=== PATIENT | female | born 1955 | race African-American/Black ===

== ENCOUNTER 2020-03-01 17:57 | Inpatient (IN) | payer OTHER ==
[~2020-03-01] VITALS: Ht 162.6 cm; Wt 76.1 kg
--- NOTE | 2020-03-01 18:31 | NUR ---
MANUELA BRUMFIELD CONTACTED FOR PT MEDICATION LIST. THEY REPORT THEY DID NOT REVIEW HOME MEDS WITH PATIENT. PT STATES USES A PHARMACY IN [place], [place] THAT IS CURRENTLY CLOSED. [facility] WILL OPEN AT 0900 TOMORROW.
[2020-03-01 19:30] LABS: BASOPHILS 0.2 % (0-2); EOSINOPHILS 0 % (0-7); HEMOGLOBIN 16.2 g/dL (12-16); IMMATURE GRANULOCYTES 0.2 % (0-5); LYMPHOCYTES 16.3 % (15-50); MCH 27.7 pg (26.0-34.0); MCHC 32.4 g/dL (31.0-37.0); MCV 85.6 fL (80.0-100.0); MEAN PLATELET VOLUME 10.7 fL (7.4-10.4); MONOCYTES 5.7 % (2-11); NEUTROPHILS 77.6 % (40-80); PLATELET COUNT 79 10x3/uL (130-400); RBC 5.84 10x6/uL (4.00-5.40); RDW 15.9 % (11.5-14.5); WBC 4.4 10x3/uL (4.8-10.8)
[2020-03-01 19:45] LABS: CALC OSMOLALITY 299 mosm/kg (275-300); CALCIUM 10.7 mg/dL (8.5-10.1); CARBON DIOXIDE 20.7 mmol/L (21.0-32.0); CHLORIDE - SERUM 105 mmol/L (98-107); GLUCOSE 85 mg/dL (74-106); POTASSIUM - SERUM 5.3 mmol/L (3.5-5.1); SODIUM 135 mmol/L (136-145); UREA NITROGEN 99 mg/dL (7-18); eGFR NON AFRICAN AMERICAN 9 mL/min (90-120)
[2020-03-01 19:54] LABS: ALBUMIN 3.4 g/dL (3.4-5.0); ALKALINE PHOSPHATASE 135 U/L (30-120); ALT (SGPT) 21 U/L (10-68); BILIRUBIN - TOTAL 0.88 mg/dL (0.2-1.3); MAGNESIUM - SERUM 2.2 mg/dL (1.8-2.4); PHOSPHOROUS 3.8 mg/dL (2.5-4.9); PROTEIN - SERUM 7.2 g/dL (6.4-8.2); TROPONIN-I < 0.017 ng/mL (0.000-0.060)
[2020-03-01 20:04] LABS: PLATELET ESTIMATE DECREASED
[2020-03-01] MEDS ORDERED: COREG6.25 MG PO (21:44)
[2020-03-01] MEDS ORDERED: FUROSEMIDE40 MG PO (21:44)
[2020-03-01] MEDS ORDERED: ATARAX 25 MG TA25 MG PO (21:45)
[2020-03-01] MEDS ORDERED: ZOFRAN ODT4 MG/UDTAB PO (21:45)
[2020-03-01 21:47] VITALS: BP 107/71; BMI 26.7
[2020-03-02] VITALS: BP 98/62
[2020-03-02 04:00] VITALS: BP 91/64
[2020-03-02 05:20] LABS: HEMATOCRIT 47.5 % (36.0-48.0); HEMOGLOBIN 15.1 g/dL (12-16); LYMPHOCYTES 15.8 % (15-50); MCH 27.2 pg (26.0-34.0); MCHC 31.8 g/dL (31.0-37.0); MCV 85.6 fL (80.0-100.0); MEAN PLATELET VOLUME 11.5 fL (7.4-10.4); NEUTROPHILS 76.3 % (40-80); PLATELET COUNT 74 10x3/uL (130-400); RBC 5.55 10x6/uL (4.00-5.40); WBC 4.2 10x3/uL (4.8-10.8)
[2020-03-02 05:54] LABS: ANION GAP 16.3 mmol/L (8-16); CALCIUM 9.5 mg/dL (8.5-10.1); CARBON DIOXIDE 17.4 mmol/L (21.0-32.0); CREATININE - SERUM 4.4 mg/dL (0.6-1.3); PHOSPHOROUS 3.8 mg/dL (2.5-4.9); POTASSIUM - SERUM 4.7 mmol/L (3.5-5.1)
[2020-03-02 09:00] VITALS: BP 98/68
[2020-03-02] MEDS ORDERED: CELEXA40 MG PO (10:00)
[2020-03-02] MEDS ORDERED: LOMOTIL 2.5-0.1 EAC1 PO (10:03)
--- NOTE | 2020-03-02 10:03 | NUR ---
CALLED [facility] AND SPOKE WITH MATT AND REVIEWED PT'S HOME MEDS.
--- NOTE | 2020-03-02 10:06 | NUR ---
PT STATES HER DOCTOR TOOK HER OFF LASIX AND HYDRALAZINE YESTERDAY.
--- NOTE | 2020-03-02 10:13 | NUR ---
PT STATES SHE ONLY TAKES HYDROXIZINE FOR ITCHING NEEDED BUT HER DOCOTR TOOK HER OFF TWO MEDICATIONS YESTERDAY BUT SHE IS NOT SURE WHAT THEY ARE. WILL CALL PT'S PCP.
[2020-03-02] MEDS ORDERED: LASIX20 MG PO (10:27)
--- NOTE | 2020-03-02 10:28 | NUR ---
SPOKE WITH DR. VANCE'S NURSE AND WENT OVER MED LIST. MED REC NOW CORRECT.
--- NOTE | 2020-03-02 10:29 | NUR ---
REFUSED SCD'S. PT UP ADLIB TO THE BATHROOM ANDS AROUND ROOM.
[2020-03-02 12:00] VITALS: BP 99/65
--- NOTE | 2020-03-02 13:24 | NUR ---
I have reviewed this patient and I concur with the Shift Assessment completed by the Licensed Practical Nurse today this shift.
[2020-03-02 15:10] LABS: BILIRUBIN NEGATIVE (NEGATIVE); GLUCOSE NEGATIVE (NEGATIVE); KETONE NEGATIVE (NEGATIVE); NITRITE NEGATIVE (NEGATIVE); SPECIFIC GRAVITY 1.015 (1.005-1.020); UROBILINOGEN NORMAL (NORMAL)
[2020-03-02 16:00] VITALS: BP 105/70
--- NOTE | 2020-03-02 19:08 | NUR ---
RECEIVED BEDSDIE REPORT. PATIENT IS ALERT AND ORIENTED, RESTING COMFORTABLY IN BED. RESPIRATIONS ARE EVEN AND UNLABORED. NO S/S OF DISTRESS. NO C/O PAIN. CALL LIGHT WITHIN REACH. WILL CPOC.
[2020-03-02 20:00] VITALS: BP 94/64
[2020-03-03] VITALS: BP 109/61
[2020-03-03 04:00] VITALS: BP 118/67
[2020-03-03 04:50] LABS: ANION GAP 10.8 mmol/L (8-16); CALCIUM 8.8 mg/dL (8.5-10.1); CREATININE - SERUM 4.1 mg/dL (0.6-1.3); URIC ACID 12.8 mg/dL (2.6-7.2)
[2020-03-03 04:51] LABS: BASOPHILS 0.2 % (0-2); EOSINOPHILS 0.2 % (0-7); HEMATOCRIT 43.5 % (36.0-48.0); HEMOGLOBIN 14.2 g/dL (12-16); IMMATURE GRANULOCYTES 0.2 % (0-5); LYMPHOCYTES 17.6 % (15-50); MCH 27.7 pg (26.0-34.0); MCHC 32.6 g/dL (31.0-37.0); MCV 84.8 fL (80.0-100.0); MONOCYTES 8.8 % (2-11); RBC 5.13 10x6/uL (4.00-5.40); RDW 15.8 % (11.5-14.5); WBC 4.1 10x3/uL (4.8-10.8)
[2020-03-03 04:53] LABS: CARBON DIOXIDE 24.2 mmol/L (21.0-32.0); PHOSPHOROUS 2.8 mg/dL (2.5-4.9)
[2020-03-03 04:54] LABS: PLATELET COUNT 89 10x3/uL (130-400); PLATELET ESTIMATE DECREASED
[2020-03-03 13:04] VITALS: BP 94/66
[2020-03-03 13:29] VITALS: Ht 162.6 cm; Wt 76.1 kg
[2020-03-03 17:40] VITALS: BP 96/61
[2020-03-03 18:15] VITALS: BP 95/65
--- NOTE | 2020-03-03 19:18 | NUR ---
I have reviewed this patient and I concur with the Shift Assessment completed by the Licensed Practical Nurse today this shift.
--- NOTE | 2020-03-03 20:11 | NUR ---
REPORT AND INITIAL ROUNDS COMPLETED. PT RESTING WITH NO DISTRESS. CPOC.
[2020-03-03 20:40] VITALS: BP 93/60
--- NOTE | 2020-03-03 21:19 | NUR ---
BEDTIME MEDS GIVEN.
[2020-03-04 01:13] VITALS: BP 96/68
[2020-03-04 04:42] VITALS: BP 102/72
[2020-03-04 05:01] LABS: BASOPHILS 0.2 % (0-2); EOSINOPHILS 0.2 % (0-7); HEMATOCRIT 43.8 % (36.0-48.0); HEMOGLOBIN 14.2 g/dL (12-16); IMMATURE GRANULOCYTES 0.2 % (0-5); LYMPHOCYTES 19.9 % (15-50); MCH 27.5 pg (26.0-34.0); MCHC 32.4 g/dL (31.0-37.0); MCV 84.7 fL (80.0-100.0); MEAN PLATELET VOLUME 11.1 fL (7.4-10.4); MONOCYTES 7.7 % (2-11); NEUTROPHILS 71.8 % (40-80); PLATELET COUNT 97 10x3/uL (130-400); RBC 5.17 10x6/uL (4.00-5.40); RDW 15.5 % (11.5-14.5); WBC 4.4 10x3/uL (4.8-10.8)
[2020-03-04 05:31] LABS: ANION GAP 11.7 mmol/L (8-16); CARBON DIOXIDE 22.2 mmol/L (21.0-32.0); CREATININE - SERUM 3.7 mg/dL (0.6-1.3); PHOSPHOROUS 2.2 mg/dL (2.5-4.9); POTASSIUM - SERUM 3.9 mmol/L (3.5-5.1)
--- NOTE | 2020-03-04 08:06 | NUR ---
PT AWAKE AND ORIENTED, LYING IN BED WATCHING TELIVISION. NO COMPLAINTS OR CONCERNS AT THIS TIME. NO FAMILY AT BEDSIDE. CL IN REACH, SRX2.
[2020-03-04 12:00] VITALS: BP 94/66
[2020-03-04 12:29] VITALS: BP 87/58
--- NOTE | 2020-03-04 14:42 | NUR ---
I have reviewed this patient and I concur with the Shift Assessment completed by the Licensed Practical Nurse today this shift.
[2020-03-04 16:00] VITALS: BP 98/67
[2020-03-04 20:00] VITALS: BP 95/70
--- NOTE | 2020-03-04 20:00 | NUR ---
REPORT AND INITIAL ROUNDS COMPLETED. PT RESTING IN BED. PLEASANT AND COOPERATIVE. HOPEFUL THAT SHE MAY GO HOME TOMORROW. CPOC.
[2020-03-05] VITALS: BP 99/66
--- NOTE | 2020-03-05 03:14 | NUR ---
PT RESTING IN BED WITH EYES CLOSED. RESPS EVEN/NONLABORED. SR PER TELEMETRY. CALL LIGHT IN REACH.
[2020-03-05 04:00] VITALS: BP 101/70
[2020-03-05 05:51] LABS: BASOPHILS 0.4 % (0-2); EOSINOPHILS 0 % (0-7); HEMOGLOBIN 13.6 g/dL (12-16); IMMATURE GRANULOCYTES 0.2 % (0-5); LYMPHOCYTES 23.3 % (15-50); MCH 27.9 pg (26.0-34.0); MCHC 32.4 g/dL (31.0-37.0); MCV 86.1 fL (80.0-100.0); MEAN PLATELET VOLUME 10.4 fL (7.4-10.4); MONOCYTES 7.7 % (2-11); NEUTROPHILS 68.4 % (40-80); PLATELET COUNT 83 10x3/uL (130-400); RBC 4.88 10x6/uL (4.00-5.40); RDW 15.7 % (11.5-14.5); WBC 4.7 10x3/uL (4.8-10.8)
[2020-03-05 06:25] LABS: ANION GAP 10.7 mmol/L (8-16); CALCIUM 8.8 mg/dL (8.5-10.1); CARBON DIOXIDE 21.4 mmol/L (21.0-32.0); CREATININE - SERUM 3.6 mg/dL (0.6-1.3); PHOSPHOROUS 2.2 mg/dL (2.5-4.9); POTASSIUM - SERUM 4.1 mmol/L (3.5-5.1)
--- NOTE | 2020-03-05 07:29 | NUR ---
PT RESTING COMFORTABLY, EYES CLOSED, BREATHS EVEN REGULAR AND UNLABORED. NO SIGNS OR SYMTPOMSO F ACUTE DISTRESSS NOTED AT THIS TIME. DID NTO WAKE I ENTERED, DID NOT FURTHER DISTURB AT THIS TIME. CL IN REACH, SRX2.
--- NOTE | 2020-03-05 09:11 | NUR ---
PT AWAKE AND ORIENTED. LYING IN BED. TOOK PILLS WITHOUT COMPLICATIONS, HOPEFUL TO D/C TODAY. WILL UPDATE THINGS PROGRESS. NO COMPLAINTS OR CONCERNS AT THSI TIME. CLIN REACH, SRX2.
[2020-03-05 09:39] VITALS: BP 95/72
[2020-03-05] MEDS ORDERED: ZYLOPRIM100 MG PO (10:34)
--- NOTE | 2020-03-05 10:55 | MORECARE ---
CASE MANAGEMENT DISCHARGE SUMMARY PATIENT: RAMSEY LORA UNIT: [id number] ADM DATE: 03/01/20 AGE: 64 : 59 SEX: F ROOM/BED: D.2493 AUTHOR: PRMIO DRISCOLL PHYSICIAN: REFERRING PHYSICIAN: ILIANA HICKS DO DATE OF SERVICE: 03/05/20 Discharge Plan Patient Name: RAMSEY LORA Facility: [facility]:[place] : 1955 Planned Disposition: Home Anticipated Discharge Date: Discharge Date: Expected LOS: Initial Reviewer: [email or web address] Initial Review Date: 03/01/2020 Generated: 03/05/20 11:55 am Patient Name: RAMSEY LORA Page [id number] at 1055 All edits/amendments must be made on the electronic document DICTATION DATE: 03/05/20 1055 PORTABLE PINCH RIVETER: KAREN 03/05/20 1055 RPT#: [id number] DC DATE: STATUS: ADM IN [facility] [address] [place] [address] END OF REPORT
--- NOTE | 2020-03-05 11:02 | MORECARE ---
CASE MANAGEMENT DISCHARGE SUMMARY PATIENT: RAMSEY LORA UNIT: [id number] ADM DATE: 03/01/20 AGE: 64 : 59 SEX: F ROOM/BED: D.7895 AUTHOR: PRIMO DRISCOLL PHYSICIAN: REFERRING PHYSICIAN: ILIANA HICKS DO DATE OF SERVICE: 03/05/20 Discharge Plan Patient Name: RAMSEY LORA Facility: [facility]:[place] : 1955 Planned Disposition: Home Anticipated Discharge Date: Discharge Date: Expected LOS: Initial Reviewer: [email or web address] Initial Review Date: 03/01/2020 Generated: 03/05/20 12:01 pm DCPIA - Discharge Planning Initial Assessment Updated by [email or web address]: Gianna Magaña on 03/05/20 10:56 am * Is the patient Alert and Oriented? Yes * How many steps to enter\exit or inside your home? 4/0 * PCP Edy * Pharmacy [facility] in [place] * Preadmission Environment Home Alone * ADLs Independent * Equipment None * List name and contact numbers for known caregivers / representatives who currently or will assist patient after discharge: Rekha Escobedo (sister) [phone] * Verbal permission to speak to the caregivers and representatives has been obtained from the patient. Yes * Community resources currently utilized None * Additional services required to return to the preadmission environment? No * Can the patient safely return to the preadmission environment? Yes * Has this patient been hospitalized within the prior 30 days at any hospital? No Last DP export: 03/05/20 9:55 a Patient Name: RAMSEY LORA Page [id number] at 1102 All edits/amendments must be made on the electronic document DICTATION DATE: 03/05/20 110 CERTIFIED MEDICAL AIDE: KAREN 03/05/20 1101 RPT#: [id number] DC DATE: STATUS: ADM IN [facility] [address] [place] [address] END OF REPORT
--- NOTE | 2020-03-05 11:08 | MORECARE ---
CASE MANAGEMENT DISCHARGE SUMMARY PATIENT: RAMSEY LORA UNIT: [id number] ADM DATE: 03/01/20 AGE: 64 : 59 SEX: F ROOM/BED: D.2285 AUTHOR: PRIMO DRISCOLL PHYSICIAN: REFERRING PHYSICIAN: ILIANA HICKS DO DATE OF SERVICE: 03/05/20 Discharge Plan Patient Name: RAMSEY LORA Facility: [facility]:[place] : 1955 Planned Disposition: Home Anticipated Discharge Date: Discharge Date: Expected LOS: Initial Reviewer: [email or web address] Initial Review Date: 03/01/2020 Generated: 03/05/20 12:08 pm Comments DCP- Discharge Planning Updated by [email or web address]: Gianna Magaña on 03/05/20 10:[address] Patient Name: RAMSEY LORA Admission Status: Elective Accout number: [id number] Admission Date: 03-01-2020 : 1955 Admission Diagnosis:ACUTE KIDNEY FAILURE, UNSPECIFIED Attending: FATEMEH Current LOS: 4 Anticipated DC Date: Planned Disposition: Home Primary Insurance: [employer] Discharge Planning Comments: CM met with patient to complete initial dc planning assessment. CM educated patient on the CM role and verbal consent given by patient to complete assessment. CM verified patient's address, phone number, and emergency contact phone numbers. Pt states she lives in a mobile home in [place]; her address is [address], and her phone number is [phone]. Her phone is currently off until she can get new minutes. Her PCP is Dr Snow in [place]. Her emergency contact is Rekha her sister, and she can be reached at [phone]. Patient lives at alone and is independent with her ADL's. At discharge patient plans to return home and feels this is a safe discharge. CM discussed availability of home health, rehab services, and medical equipment. Patient denied known discharge needs at this time. Declination signed. Transportation provider at discharge will be her sister Rekha, or her Uncle Maximino. Her family is currently in faith. Patient will try to contact family after faith. CM will continue to follow and will assist as needed with transportation if family is unavailable. Senior Financial: Gianna Magaña MSN,RN,CM DCPIA - Discharge Planning Initial Assessment Updated by [email or web address]: Gianna Magaña on 03/05/20 10:56 am * Is the patient Alert and Oriented? Yes * How many steps to enter\exit or inside your home? 4/0 * PCP Edy * Pharmacy [facility] in [place] * Preadmission Environment Home Alone * ADLs Independent * Equipment None * List name and contact numbers for known caregivers / representatives who currently or will assist patient after discharge: Rekha Escobedo (sister) [phone] * Verbal permission to speak to the caregivers and representatives has been obtained from the patient. Yes * Community resources currently utilized None * Additional services required to return to the preadmission environment? No * Can the patient safely return to the preadmission environment? Yes * Has this patient been hospitalized within the prior 30 days at any hospital? No Last DP export: 03/05/20 10:02 a Patient Name: RAMSEY LORA Page [id number] at 1108 All edits/amendments must be made on the electronic document DICTATION DATE: 03/05/20 110 SUPERVISOR VAT HOUSE: KAREN 03/05/20 1108 RPT#: [id number] DC DATE: STATUS: ADM IN [facility] [address] [place] [address] END OF REPORT
--- NOTE | 2020-03-05 12:42 | NUR ---
PT ESCORTED OUT VIA WHEELCHIAR TO POV, DAUGHTER DRIVING. IV OUT TIP INTACT.
== END 2020-03-05 12:42 | disposition home or self-care (01) | DRG 683 ==
LOC: D.ER 17:57 → D.M2 20:25
PROVIDERS: Emergency Medicine; Family Medicine; Internal Medicine Nephrology; ADMIT Internal Medicine; ATTEND Internal Medicine
DX: N17.9 Acute kidney failure, unspecified (principal); I13.0 Hypertensive heart and chronic kidney disease with heart failure and stage 1 through stage 4 chronic kidney disease, or unspecified chronic kidney disease; E87.5 Hyperkalemia; I48.91 Unspecified atrial fibrillation; I50.9 Heart failure, unspecified; E83.52 Hypercalcemia; N18.4 Chronic kidney disease, stage 4 (severe); D47.2 Monoclonal gammopathy